=== PATIENT | male | born 1990 | race Caucasian/White ===

== ENCOUNTER 2016-05-15 12:00 | Outpatient (CLI) | payer SELFPAY ==
[~2016-05-15] VITALS: Ht 175.3 cm; Wt 99.3 kg
[~2016-05-15 12:00] MED LIST: CIPR-225 PO; METR500T PO
== END 2016-05-15 13:52 ==
LOC: PREOP 12:00
PROVIDERS: ATTEND Surgery
DX: Z01.818 Encounter for other preprocedural examination (principal)

== ENCOUNTER 2016-05-21 08:43 | Day surgery (SDC) | payer OTHER ==
[~2016-05-21] VITALS: Ht 175.3 cm; Wt 99.3 kg
[2016-05-21 08:55] VITALS: BP 135/86
[2016-05-21] MEDS ORDERED: NS IV 1000 ML 1,000 ML ONE (08:58)
[2016-05-21] MEDS ORDERED: LIDOCAINE JELLY 2% (XYLOCAINE) 5 ML TUBE MM PRN (09:00)
[2016-05-21] MEDS ORDERED: NS IV 1000 ML 1,000 ML IV PRN (09:00)
[2016-05-21] MEDS ORDERED: MIDAZOLAM 2 MG/2 ML (VERSED) VIAL ONE (10:05)
[2016-05-21] MEDS ORDERED: proPOfol 200 MG/20 ML (DIPRIVAN) VIAL IV ONE (10:05)
--- NOTE | 2016-05-21 10:42 | Discharge Inst-Simple/Standard ---
Discharge Inst-Standard Patient Instructions/Follow Up Plan of Care/Instructions/FU: Follow up with Dr. Cordova as needed. Repeat colonoscopy in 3 years or sooner if changes to current condition. Activity as Tolerated: Yes Discharge Diet: No Restrictions BETSY BURNETTE APRN May 21, 2016 10:42
--- NOTE | 2016-05-21 10:49 | Progress Note-Post Operative ---
Post-Operative Progess Note Surgeon (s)/Oil Well Logger (s) Surgeon NGHIA SHERIFF DO Oil Well Logger: 0 Pre-Operative Diagnosis history of polyp Post-Operative Diagnosis normal colon Post-Op Procedure Note Date of Procedure: May 21, 2016 Name of Procedure Performed: colonoscopy Description of the Procedure: see note Findings of the Procedure see note Anesthesia Type per mda Estimated blood loss (mL): none Specimen(s) collected/removed none NGHIA SHERIFF DO May 21, 2016 10:49 am
[2016-05-21 11:00] VITALS: BP 149/86
[2016-05-21 11:20] VITALS: BP 134/80
[2016-05-21 11:30] VITALS: BP 134/80
--- NOTE | 2016-05-22 10:26 | PROCEDURE REPORT ---
PROCEDURE PHYSICIAN: NGHIA CORDOVA DATE OF PROCEDURE: 05/21/2016 PREOPERATIVE DIAGNOSES: History of serrated adenomatous polyp with high-grade dysplasia. POSTOPERATIVE DIAGNOSIS: Normal colon. PROCEDURE: Colonoscopy. SURGEON: Dr. Cordova. ANESTHESIA: Per MDA. ESTIMATED BLOOD LOSS: None. COMPLICATIONS: None. INDICATIONS: The patient is a 25-year-old with serrated adenomatous polyp with high-grade dysplasia. He understands the risks and benefits of the procedure and wished to proceed with the procedure. Consent was signed on the chart. PROCEDURE: The patient was taken operative taken to the endoscopy suite, placed in left lateral recumbent position. Timeout was performed. Digital rectal exam was performed. There were no palpable polyps, masses or ulcerations. The scope was inserted in the rectum and advanced all of the way to the cecum with minimal difficulty. Prep was adequate. The scope was then slowly retracted back. There were no polyps, masses, or ulcerations in the cecum, ascending, transverse, descending and sigmoid colon. Once in the rectum, the scope was also retroflexed noting no other pathology. The scope was returned its normal position and slowly withdrawn until completely removed. The patient tolerated the procedure well without any complications and taken to recovery in stable condition. RECOMMENDATIONS: Would recommend repeat colonoscopy in 3 years for reevaluation. After that, he will need a colonoscopy over 5 years due to the history of polyps. The patient understands. The patient will follow-up for next colonoscopy in 3 years. If any problems prior to that, he should be reevaluated at that time. Job ID: [id number] Dictated Date: 05/21/2016 10:52:19 Long Chain Beamer Date: 05/22/2016 10:19:50 / tbk
== END 2016-05-21 11:30 | disposition home or self-care (01) ==
LOC: SDC 08:43
PROVIDERS: ATTEND Surgery
DX: Z09 Encounter for follow-up examination after completed treatment for conditions other than malignant neoplasm (principal); Z86.010 Personal history of colon polyps

== ENCOUNTER 2019-12-13 12:10 | Observation (INO) | payer SELFPAY ==
[~2019-12-13] VITALS: Ht 177.8 cm; Wt 99.9 kg
[2019-12-13] MEDS ORDERED: KETOROLAC 30 MG/ML VIAL IVP ONE (12:30)
[2019-12-13] MEDS ORDERED: NS IV 1000 ML 1,000 ML IV SCH (12:30)
[2019-12-13 12:31] LABS: BASOPHILS # (AUTO) 0.1 10^3/uL (0.0-0.1); BASOPHILS % (AUTO) 1 % (0-10); EOSINOPHILS # (AUTO) 0.1 10^3/uL (0.0-0.3); EOSINOPHILS % (AUTO) 1 % (0-10); HEMATOCRIT 47 % (40-54); LYMPHOCYTES # (AUTO) 1.8 10^3/uL (1.0-4.0); LYMPHOCYTES % (AUTO) 10 % (12-44); MEAN CORPUSCULAR HEMOGLOBIN 30 pg (25-34); MEAN CORPUSCULAR HGB CONC 34 g/dL (32-36); MEAN CORPUSCULAR VOLUME 89 fL (80-99); MEAN PLATELET VOLUME 11.8 fL (9.0-12.2); MONOCYTES # (AUTO) 0.8 10^3/uL (0.0-1.0); MONOCYTES % (AUTO) 5 % (0-12); NEUTROPHILS # (AUTO) 14.9 10^3/uL (1.8-7.8); NEUTROPHILS % (AUTO) 84 % (42-75); PLATELET COUNT 244 10^3/uL (130-400); WHITE BLOOD COUNT 17.8 10^3/uL (4.3-11.0)
--- NOTE | 2019-12-13 12:31 | ED GI ---
General Chief Complaint: Abdominal/GI Problems Stated Complaint: LLQ PAIN Nursing Triage Note: PT AMBULATE TO ROOM 06 WITH C/O LLQ PAIN STARTING FRIDAY. PT STATES WAS SEEN AT [facility] AND TOLD THAT HE HAS A KIDNEY STONE. PT STATES HE SEEN BLOOD IN HIS URINE AND HE RETURNED TO [facility] AND WAS TOLD HE HAD A KIDNEY INFECTION AND WAS INSTRUCTED TO COME TO ED. Sepsis Screen: No Definite Risk Source of Information: Patient Exam Limitations: No Limitations History of Present Illness Date Seen by Provider: Dec 13, 2019 Time Seen by Provider: 12:29 Initial Comments To ER with sudden onset left flank pain that began Friday. The pain was initially intermittent but has become more constant since then and he has had an episode of vomiting as well as hematuria. He went to [facility] and was referred here due to pain and hematuria. No history of kidney stones. He does smoke cigarettes but he takes no medications and does not drink alcohol. Has not taken anything at home for pain. Timing/Duration: 2-3 Days Severity/Quality: Moderate Location: Flank Radiation: No Radiation Activities at Onset: None Associated Symptoms: Denies Symptoms Allergies and Home Medications Allergies Coded Allergies: No Known Drug Allergies (Unverified , 10/07/15) Home Medications No Active Prescriptions or Reported Meds Patient Home Medication List Home Medication List Reviewed: Yes Review of Systems Review of Systems Constitutional: see HPI, chills EENTM: No Symptoms Reported Respiratory: No Symptoms Reported Cardiovascular: No Symptoms Reported Gastrointestinal: See HPI, Abdominal Pain Genitourinary: See HPI, Hematuria Musculoskeletal: no symptoms reported Skin: no symptoms reported Psychiatric/Neurological: No Symptoms Reported Endocrine: No Symptoms Reported Hematologic/Lymphatic: No Symptoms Reported Past Jysjclc-Wrbixk-Umdfww Hx Patient Social History Alcohol Use: Rarely Uses Recreational Drug Use: No Smoking Status: Current Everyday Smoker Type Used: Cigarettes Recent Foreign Travel: No Contact w/Someone Who Travel: No Recent Infectious Disease Expo: No Recent Hopitalizations: No Physical Abuse: No Sexual Abuse: No Mistreated: No Fear: No Seasonal Allergies Seasonal Allergies: Yes Past Medical History Surgeries: Yes (left patella/tendon surgery) Orthopedic Respiratory: No Cardiac: No Neurological: No Reproductive Disorders: No Gastrointestinal: No Musculoskeletal: No Endocrine: No Cancer: No Psychosocial: No Integumentary: No Blood Disorders: No Physical Exam Vital Signs Vital Signs - First Documented 12/13/19 12:15 Temp 35.8 Pulse 97 Resp 19 B/P (MAP) 145/102 (116) O2 Delivery Room Air Capillary Refill : Less Than 3 Seconds Height/Weight/BMI Height: 5'9.00" Weight: 219lbs. 0.0oz. 99.432420ld; 31.00 BMI Method:Stated General Appearance: WD/WN, no apparent distress Respiratory: normal breath sounds, no respiratory distress, no accessory muscle use Gastrointestinal: normal bowel sounds, non tender, soft Rectal: other (there is left flank tenderness to palpation) Extremities: normal range of motion, non-tender Neurologic/Psychiatric: alert, normal mood/affect, oriented x 3 Skin: normal color, warm/dry Focused Exam Lactate Level 12/13/19 13:00: Lactic Acid Level 1.08 Lactic Acid Level Laboratory Tests Test 12/13/19 13:00 Lactic Acid Level 1.08 MMOL/L (0.50-2.00) Progress/Results/Core Measures Results/Orders Lab Results Laboratory Tests Test 12/13/19 12:14 12/13/19 13:00 12/13/19 13:10 Range/Units White Blood Count 17.8 H 4.3-11.0 10^3/uL Red Blood Count 5.28 4.30-5.52 10^6/uL Hemoglobin 16.0 13.3-17.7 g/dL Hematocrit 47 40-54 % Mean Corpuscular Volume 89 80-99 fL Mean Corpuscular Hemoglobin 30 25-34 pg Mean Corpuscular Hemoglobin Concent 34 32-36 g/dL Red Cell Distribution Width 13.5 10.0-14.5 % Platelet Count 244 130-400 10^3/uL Mean Platelet Volume 11.8 9.0-12.2 fL Immature Granulocyte % (Auto) 0 % Neutrophils (%) (Auto) 84 H 42-75 % Lymphocytes (%) (Auto) 10 L 12-44 % Monocytes (%) (Auto) 5 0-12 % Eosinophils (%) (Auto) 1 0-10 % Basophils (%) (Auto) 1 0-10 % Neutrophils # (Auto) 14.9 H 1.8-7.8 10^3/uL Lymphocytes # (Auto) 1.8 1.0-4.0 10^3/uL Monocytes # (Auto) 0.8 0.0-1.0 10^3/uL Eosinophils # (Auto) 0.1 0.0-0.3 10^3/uL Basophils # (Auto) 0.1 0.0-0.1 10^3/uL Immature Granulocyte # (Auto) 0.1 0.0-0.1 10^3/uL Neutrophils % (Manual) 76 % Lymphocytes % (Manual) 16 % Monocytes % (Manual) 5 % Eosinophils % (Manual) 0 % Basophils % (Manual) 2 % Band Neutrophils 1 % Blood Morphology Comment NORMAL Sodium Level 138 135-145 MMOL/L Potassium Level 3.6 3.6-5.0 MMOL/L Chloride Level 104 98-107 MMOL/L Carbon Dioxide Level 23 21-32 MMOL/L Anion Gap 11 5-14 MMOL/L Blood Urea Nitrogen 7 7-18 MG/DL Creatinine 0.94 0.60-1.30 MG/DL Estimat Glomerular Filtration Rate > 60 BUN/Creatinine Ratio 7 Glucose Level 88 70-105 MG/DL Calcium Level 9.4 8.5-10.1 MG/DL Corrected Calcium 9.2 8.5-10.1 MG/DL Total Bilirubin 0.7 0.1-1.0 MG/DL Aspartate Amino Transf (AST/SGOT) 41 H 5-34 U/L Alanine Aminotransferase (ALT/SGPT) 64 H 0-55 U/L Alkaline Phosphatase 87 40-136 U/L Total Protein 7.0 6.4-8.2 GM/DL Albumin 4.3 3.2-4.5 GM/DL Lactic Acid Level 1.08 0.50-2.00 MMOL/L Urine Color YELLOW Urine Clarity CLEAR Urine pH 6.5 5-9 Urine Specific [place] <=1.005 1.016-1.022 Urine Protein 2+ H NEGATIVE Urine Glucose (UA) NEGATIVE NEGATIVE Urine Ketones 3+ H NEGATIVE Urine Nitrite NEGATIVE NEGATIVE Urine Bilirubin 1+ H NEGATIVE Urine Urobilinogen 1.0 < = 1.0 MG/DL Urine Leukocyte Esterase TRACE H NEGATIVE Urine RBC (Auto) 3+ H NEGATIVE Urine RBC >100 H /HPF Urine WBC 10-25 H /HPF Urine Squamous Epithelial Cells RARE /HPF Urine Crystals NONE /LPF Urine Bacteria NEGATIVE /HPF Urine Casts NONE /LPF Urine Mucus NEGATIVE /LPF Urine Culture Indicated YES My Orders Orders - MYRON REED LEGAL SUPPORT SPECIALIST Ct Abd/Pelvis Wo(Kidney Stone) (12/13/19 12:25) Cbc With Automated Diff (12/13/19 12:25) Comprehensive Metabolic Panel (12/13/19 12:25) Ua Culture If Indicated (12/13/19 12:25) Ed Iv/Invasive Line Start (12/13/19 12:25) Ns Iv 1000 Ml (Sodium Chloride 0.9%) (12/13/19 12:30) Ketorolac Injection (Toradol Injection) (12/13/19 12:30) Abdomen/Kub 1view (12/13/19 12:25) Manual Differential (12/13/19 12:14) Blood Culture (12/13/19 12:53) Lactic Acid Analyzer (12/13/19 12:53) Ceftriaxone For Iv Use (Rocephin For I (12/13/19 13:00) Urine Culture (12/13/19 13:10) Medications Given in ED Current Medications Medications Dose Ordered Sig/Analy Route Start Time Stop Time Status Last Admin Dose Admin Ceftriaxone Sodium 1000 mg/ Sterile Water 10 ml @ 200 mls/hr ONCE ONCE IV 12/13/19 13:00 12/13/19 13:02 DC 12/13/19 13:07 200 MLS/HR Ketorolac Tromethamine 15 mg ONCE ONCE IVP 12/13/19 12:30 12/13/19 12:31 DC 12/13/19 12:36 15 MG Vital Signs/I&O 12/13/19 12:15 Temp 35.8 Pulse 97 Resp 19 B/P (MAP) 145/102 (116) O2 Delivery Room Air Blood Pressure Mean: 116 Diagnostic Imaging Diagonstic Imaging: CT Comments NAME: BRANDON MASCORRO Beatriz Gonzalez MED REC#: [id number] PT STATUS: REG ER : 1990 PHYSICIAN: MYRON REED APRN ADMIT DATE: 12/13/19/ER Draft Date of Exam:12/13/19 CT ABD/PELVIS WO(KIDNEY STONE) PROCEDURE: CT urinary tract, rule out kidney stone. TECHNIQUE: Multiple contiguous axial images were obtained through the abdomen and pelvis without the use of intravenous contrast. Auto Exposure Controls were utilized during the CT exam to meet ALARA standards for radiation dose reduction. INDICATION: Left flank and back pain. Hematuria. COMPARISON: 10/07/2015. FINDINGS: The heart is unremarkable. The included lung bases are clear. A calculus is seen in the proximal left ureter at the L4 level measuring 0.3 cm with mild left-sided hydroureteronephrosis. No calculi are seen on the right. The urinary bladder is nondistended. The liver, spleen, pancreas, and adrenal glands have a normal noncontrast CT appearance. There is no pathologically enlarged mesenteric or retroperitoneal adenopathy. The bowel loops are nondilated. The appendix is visualized in the right lower quadrant and has a normal appearance. There is no free fluid or free air. The osseous structures are age-appropriate. There is no free air, loculated collection, or adenopathy in the pelvis. IMPRESSION: Urolithiasis in the proximal left ureter with associated mild left-sided hydroureteronephrosis. Dictated on workstation # [id number] Dict: 12/13/19 1307 Trans: 12/13/19 1312 ANURAG [id number] Interpreted by: GARCIA MELCHOR DO Electronically signed by: NAME: BRANDON MASCORRO Beatriz Gonzalez MED REC#: [id number] PT STATUS: REG ER : 1990 PHYSICIAN: MYRON REED LEGAL SUPPORT SPECIALIST ADMIT DATE: 12/13/19/ER Draft Date of Exam:12/13/19 ABDOMEN/KUB 1VIEW INDICATION: Left-sided renal stone. TIME OF EXAM: 12:50 PM. FINDINGS: A small 3 mm calculus in the left ureter projects just below the left L3 transverse process. No other radiopaque urinary tract calculi are seen. A right pelvic calcification is most consistent with a phlebolith. The bowel gas pattern is unremarkable. IMPRESSION: Left ureteral calculus, as described. Dictated on workstation # [id number] Dict: 12/13/19 1314 Trans: 12/13/19 1318 ANURAG [id number] Interpreted by: CHRISTOPHER NEVILLE MD Electronically signed by: Departure Communication (Admissions) 2353-he is afebrile but has leukocytosis and tachycardia with a rate of 107 on arrival. He's also had 3 days of symptoms and despite this the stone is still quite proximal. For this reason will admit him for some IV fluids and Rocephin, see if Dr. Xiong needs to do lithotripsy or stent placement. 1357-Pain free after 15mg toradol at this time. Impression Primary Impression: Sepsis Qualified Codes: A41.9 - Sepsis, unspecified organism Additional Impression: Left ureteral calculus Disposition: ADMITTED INPATIENT Condition: Stable Admissions Decision to Admit Reason: Admit from ER (General) Decision to Admit/Date: Dec 13, 2019 Time/Decision to Admit Time: 12:57 Departure-Patient Inst. Referrals: [facility] [place] (PCP/Family) Primary Care Physician Scripts No Active Prescriptions or Reported Meds MYRON REED APRN Dec 13, 2019 12:31
[2019-12-13 12:35] LABS: ALBUMIN 4.3 GM/DL (3.2-4.5); CHLORIDE 104 MMOL/L (98-107); POTASSIUM 3.6 MMOL/L (3.6-5.0); SODIUM 138 MMOL/L (135-145)
[2019-12-13 12:36] LABS: CALCIUM 9.4 MG/DL (8.5-10.1)
[2019-12-13 12:37] LABS: GLUCOSE 88 MG/DL (70-105)
[2019-12-13 12:38] LABS: CARBON DIOXIDE 23 MMOL/L (21-32)
[2019-12-13 12:39] LABS: BILIRUBIN,TOTAL 0.7 MG/DL (0.1-1.0)
[2019-12-13 12:41] LABS: ALKALINE PHOSPHATASE 87 U/L (40-136); CREATININE SERUM 0.94 MG/DL (0.60-1.30); GFR ESTIMATED > 60
[2019-12-13 12:42] LABS: BUN/CREATININE RATIO 7
[2019-12-13 12:44] LABS: ALANINE AMINOTRANSFERASE 64 U/L (0-55)
[2019-12-13] MEDS ORDERED: cefTRIAXone FOR IV USE 1,000 MG in WATER (STERILE) FOR INJECTION 10 ML IV ONE (13:00)
[2019-12-13 13:06] LABS: BAND NEUTROPHILS 1 %; BASOPHILS % (MANUAL) 2 %; EOSINOPHILS % (MANUAL) 0 %; LYMPHOCYTES % (MANUAL) 16 %; MONOCYTES % (MANUAL) 5 %; NEUTROPHILS % (MANUAL) 76 %; RBC MORPH NORMAL
--- NOTE | 2019-12-13 13:14 | Diagnostic Imaging Report ---
PROCEDURE: CT urinary tract, rule out kidney stone. TECHNIQUE: Multiple contiguous axial images were obtained through the abdomen and pelvis without the use of intravenous contrast. Auto Exposure Controls were utilized during the CT exam to meet ALARA standards for radiation dose reduction. INDICATION: Left flank and back pain. Hematuria. COMPARISON: 10/07/2015. FINDINGS: The heart is unremarkable. The included lung bases are clear. A calculus is seen in the proximal left ureter at the L4 level measuring 0.3 cm with mild left-sided hydroureteronephrosis. No calculi are seen on the right. The urinary bladder is nondistended. The liver, spleen, pancreas, and adrenal glands have a normal noncontrast CT appearance. There is no pathologically enlarged mesenteric or retroperitoneal adenopathy. The bowel loops are nondilated. The appendix is visualized in the right lower quadrant and has a normal appearance. There is no free fluid or free air. The osseous structures are age-appropriate. There is no free air, loculated collection, or adenopathy in the pelvis. IMPRESSION: Urolithiasis in the proximal left ureter with associated mild left-sided hydroureteronephrosis. Dictated by: Dictated on workstation # [id number]
--- NOTE | 2019-12-13 13:19 | Diagnostic Imaging Report ---
INDICATION: Left-sided renal stone. TIME OF EXAM: 12:50 PM. FINDINGS: A small 3 mm calculus in the left ureter projects just below the left L3 transverse process. No other radiopaque urinary tract calculi are seen. A right pelvic calcification is most consistent with a phlebolith. The bowel gas pattern is unremarkable. IMPRESSION: Left ureteral calculus, as described. Dictated by: Dictated on workstation # [id number]
[2019-12-13 13:22] LABS: CLARITY,URINE CLEAR; COLOR,URINE YELLOW; GLUCOSE, URINE (UA) NEGATIVE (NEGATIVE); KETONES,URINE 3+ (NEGATIVE); LEUKOCYTE ESTERASE ,URINE TRACE (NEGATIVE); NITRITE,URINE NEGATIVE (NEGATIVE); PH,URINE 6.5 (5-9); PROTEIN,URINE 2+ (NEGATIVE)
[2019-12-13 13:34] LABS: BACTERIA,URINE NEGATIVE /HPF; RBC,URINE >100 /HPF; SQUAMOUS EPITHELIAL CELL,UR RARE /HPF
[2019-12-13 13:35] LABS: BILIRUBIN,URINE 1+ (NEGATIVE)
--- NOTE | 2019-12-13 14:15 | NUR ---
BRANDON MASCORRO admitted to room 417-1, with an admitting diagnosis of UTI/SEPSIS, on 12/13/19 from ED, accompanied by RN. BRANDON MASCORRO introduced to surroundings, call light, bed controls, phone, TV, temperature control, lights, meal times, smoking policy, visitor policy, side rail policy, bathrooms and showers. Patient Rights given to patient in the handbook. BRANDON MASCORRO verbalizes understanding that [facility] is not responsible for the loss or damage to any personal effects or valuables that are kept in the patients posession during their hospitalization. BRANDON MASCORRO verbalizes understanding of Interdisciplinary Patient Education. Patient and/or family were informed about the Rapid Response Team and its purpose.
[2019-12-13] MEDS ORDERED: KETOROLAC 15 MG/ML VIAL IV PRN (15:15)
[2019-12-13] MEDS ORDERED: CATHETER FLUSH 10 ML SYR IV PRN (15:15)
[2019-12-13] MEDS ORDERED: fentaNYL INJECTION 100 MCG/2 ML AMP IV PRN (15:15)
[2019-12-13] MEDS ORDERED: ONDANSETRON 4 MG/2 ML (SDV) Z0FRAN IV PRN (15:15)
[2019-12-13] MEDS: LACTATED RINGERS 1,000 ML IV SCH ×2 (15:16→22:56)
[2019-12-13] MEDS ORDERED: ENOXAPARIN 40 MG/0.4 ML (LOVENOX) SYR SQ SCH (15:30)
[2019-12-13 15:41] VITALS: BP 133/65
[2019-12-13 15:43] VITALS: BP 135/78
[2019-12-13] MEDS ORDERED: ACET325T38 PO (16:00)
--- NOTE | 2019-12-13 16:00 | NUR ---
I SPOKE WITH THE PATIENT TO COMPLETE THIS MED REC. OTC: TYLENOL
[2019-12-13 20:00] VITALS: BP 131/74
[2019-12-13 23:56] VITALS: BP 116/57
[2019-12-14 04:10] VITALS: BP 117/61
[2019-12-14 05:09] LABS: BASOPHILS # (AUTO) 0.1 10^3/uL (0.0-0.1); BASOPHILS % (AUTO) 1 % (0-10); EOSINOPHILS # (AUTO) 0.4 10^3/uL (0.0-0.3); EOSINOPHILS % (AUTO) 6 % (0-10); HEMATOCRIT 40 % (40-54); HEMOGLOBIN 13.1 g/dL (13.3-17.7); LYMPHOCYTES # (AUTO) 3.1 10^3/uL (1.0-4.0); LYMPHOCYTES % (AUTO) 49 % (12-44); MEAN CORPUSCULAR HEMOGLOBIN 30 pg (25-34); MEAN CORPUSCULAR HGB CONC 33 g/dL (32-36); MEAN CORPUSCULAR VOLUME 91 fL (80-99); MEAN PLATELET VOLUME 11.6 fL (9.0-12.2); MONOCYTES # (AUTO) 0.5 10^3/uL (0.0-1.0); MONOCYTES % (AUTO) 8 % (0-12); NEUTROPHILS # (AUTO) 2.3 10^3/uL (1.8-7.8); NEUTROPHILS % (AUTO) 36 % (42-75); PLATELET COUNT 182 10^3/uL (130-400); WHITE BLOOD COUNT 6.4 10^3/uL (4.3-11.0)
[2019-12-14 05:33] LABS: ALANINE AMINOTRANSFERASE 42 U/L (0-55); ALBUMIN 3.3 GM/DL (3.2-4.5); ALKALINE PHOSPHATASE 76 U/L (40-136); BILIRUBIN,TOTAL 0.4 MG/DL (0.1-1.0); BUN/CREATININE RATIO 9; CALCIUM 8.5 MG/DL (8.5-10.1); CARBON DIOXIDE 24 MMOL/L (21-32); CHLORIDE 110 MMOL/L (98-107); CREATININE SERUM 0.87 MG/DL (0.60-1.30); GFR ESTIMATED > 60; GLUCOSE 100 MG/DL (70-105); POTASSIUM 3.6 MMOL/L (3.6-5.0); SODIUM 142 MMOL/L (135-145); TOTAL PROTEIN 5.4 GM/DL (6.4-8.2)
[2019-12-14 05:52] LABS: LYMPHOCYTES % (MANUAL) 47 %; MONOCYTES % (MANUAL) 5 %; NEUTROPHILS % (MANUAL) 38 %
[2019-12-14 05:53] LABS: ATYPICAL LYMPHOCYTES 3 %; EOSINOPHILS % (MANUAL) 6 %; HYPOCHROMASIA MARKED; METAMYELOCYTES % 1 %; MICROCYTOSIS SLIGHT
[2019-12-14] MEDS: LACTATED RINGERS 1,000 ML IV SCH (06:30)
[2019-12-14 08:00] VITALS: BP 136/80
[2019-12-14] MEDS ORDERED: cefTRIAXone 1,000 MG/SWFI 10 ML IV PUSH IV SCH ×2 (09:00)
--- NOTE | 2019-12-14 11:05 | Diagnostic Imaging Report ---
INDICATION: Left ureteral stone, follow-up. TECHNIQUE: 2 supine view of the abdomen 10:19 AM CORRELATION STUDY: 12/13/2019 FINDINGS: 4 mm calcification projects just inferior to the left L3 transverse process. There has been very little if any significant migration from prior study. No additional calcification or fair either renal silhouette. Bowel gas pattern unremarkable. Spina bifida occulta defect at the S1 level. IMPRESSION: 1. No significant interval migration of the 4 mm left proximal ureteral stone. Dictated by: Dictated on workstation # [id number]
[2019-12-14] MEDS ORDERED: ACHD5005 PO (11:42)
[2019-12-14] MEDS ORDERED: TMSL.4C PO (11:42)
[2019-12-14] MEDS ORDERED: SULF1TAB35 PO (11:42)
--- NOTE | 2019-12-14 11:51 | Discharge Summary ---
Discharge Summary Hospital Course Was the Problem List Reviewed?: Yes Problems/Dx: (1) Urolithiasis Status: Acute Qualifiers: Qualified Codes: N20.1 - Calculus of ureter (2) Hydronephrosis due to obstruction of ureter Status: Acute Hospital Course Date of Admission: Dec 13, 2019 at 13:00 Admission Diagnosis : Left urolithiasis with hydronephrosis Family Physician/Provider: [place] Date of Discharge: 12/14/19 Discharge Diagnosis: Left urolithiasis with hydronephrosis Hospital Course: Tristan Watts is a 29 year old male who was admitted with left-sided urolithiasis with hydronephrosis. He was started on IV fluids and antibiotics due to pyuria. His pain was well-controlled with medications. Urology was consulted and assisted with his care. Dr. Xiong recommended continuing Bactrim, Flomax, and oral pain medications. He will follow-up with him as an outpatient. An appointment was made for follow-up prior to discharge. He should also follow-up with his primary care physician in about a week. Labs and Pending Lab Test: Laboratory Tests 12/13/19 12:14: White Blood Count 17.8H, Red Blood Count 5.28, Hemoglobin 16.0, Hematocrit 47, Mean Corpuscular Volume 89, Mean Corpuscular Hemoglobin 30, Mean Corpuscular Hemoglobin Concent 34, Red Cell Distribution Width 13.5, Platelet Count 244, Mean Platelet Volume 11.8, Immature Granulocyte % (Auto) 0, Neutrophils (%) (Auto) 84H, Lymphocytes (%) (Auto) 10L, Monocytes (%) (Auto) 5, Eosinophils (%) (Auto) 1, Basophils (%) (Auto) 1, Neutrophils # (Auto) 14.9H, Lymphocytes # (Auto) 1.8, Monocytes # (Auto) 0.8, Eosinophils # (Auto) 0.1, Basophils # (Auto) 0.1, Immature Granulocyte # (Auto) 0.1, Neutrophils % (Manual) 76, Lymphocytes % (Manual) 16, Monocytes % (Manual) 5, Eosinophils % (Manual) 0, Basophils % (Manual) 2, Band Neutrophils 1, Blood Morphology Comment NORMAL, Sodium Level 138, Potassium Level 3.6, Chloride Level 104, Carbon Dioxide Level 23, Anion Gap 11, Blood Urea Nitrogen 7, Creatinine 0.94, Estimat Glomerular Filtration Rate > 60, BUN/Creatinine Ratio 7, Glucose Level 88, Calcium Level 9.4, Corrected Calcium 9.2, Total Bilirubin 0.7, Aspartate Amino Transf (AST/SGOT) 41H, Alanine Aminotransferase (ALT/SGPT) 64H, Alkaline Phosphatase 87, Total Protein 7.0, Albumin 4.3 12/13/19 13:00: Lactic Acid Level 1.08 12/13/19 13:10: Urine Color YELLOW, Urine Clarity CLEAR, Urine pH 6.5, Urine Specific [place] <=1.005, Urine Protein 2+H, Urine Glucose (UA) NEGATIVE, Urine Ketones 3+H, Urine Nitrite NEGATIVE, Urine Bilirubin 1+H, Urine Urobilinogen 1.0, Urine Leukocyte Esterase TRACEH, Urine RBC (Auto) 3+H, Urine RBC >100H, Urine WBC 10- 25H, Urine Squamous Epithelial Cells RARE, Urine Crystals NONE, Urine Bacteria NEGATIVE, Urine Casts NONE, Urine Mucus NEGATIVE, Urine Culture Indicated YES 12/14/19 04:55: White Blood Count 6.4, Red Blood Count 4.38, Hemoglobin 13.1L, Hematocrit 40, Mean Corpuscular Volume 91, Mean Corpuscular Hemoglobin 30, Mean Corpuscular Hemoglobin Concent 33, Red Cell Distribution Width 13.7, Platelet Count 182, Mean Platelet Volume 11.6, Immature Granulocyte % (Auto) 0, Neutrophils (%) (Auto) 36L, Lymphocytes (%) (Auto) 49H, Monocytes (%) (Auto) 8, Eosinophils (%) (Auto) 6, Basophils (%) (Auto) 1, Neutrophils # (Auto) 2.3, Lymphocytes # (Auto) 3.1, Monocytes # (Auto) 0.5, Eosinophils # (Auto) 0.4H, Basophils # (Auto) 0.1, Immature Granulocyte # (Auto) 0.0, Neutrophils % (Manual) 38, Lymphocytes % (Manual) 47, Monocytes % (Manual) 5, Eosinophils % (Manual) 6, Sodium Level 142, Potassium Level 3.6, Chloride Level 110H, Carbon Dioxide Level 24, Anion Gap 8, Blood Urea Nitrogen 8, Creatinine 0.87, Estimat Glomerular Filtration Rate > 60, BUN/Creatinine Ratio 9, Glucose Level 100, Calcium Level 8.5, Corrected Calcium 9.1, Total Bilirubin 0.4, Aspartate Amino Transf (AST/SGOT) 23, Alanine Aminotransferase (ALT/SGPT) 42, Alkaline Phosphatase 76, Total Protein 5.4L, Albumin 3.3, Metamyelocytes % 1, Atypical Lymphocytes 3, Hypochromasia MARKED, Microcytosis SLIGHT Microbiology 12/13/19 Urine Culture - Preliminary, Resulted Home Meds Active Hydrocodone-Acetamin 5-325 mg (Hydrocodone/Acetaminophen) 1 Each Tablet 1 Each PO Q6H PRN 7 Days Flomax (Tamsulosin HCl) 0.4 Mg Cap 0.4 Mg PO DAILY 7 Days Bactrim Ds Tablet (Sulfamethoxazole/Trimethoprim) 1 Each Tablet 1 Each PO BID 7 Days Reported Tylenol (Acetaminophen) 325 Mg Tablet 325-650 Mg PO Q6H PRN TAKE 1-2 (325MG) TABLETS Assessment/Pt Instructions Take medications as prescribed. Complete your course of antibiotics even if you're feeling better. Follow-up with Dr. Xiong as scheduled. Follow up with [facility] in about a week. Return with intractable pain or if you feel like you're getting worse. Discharge Planning: <30 minutes discharge planning Discharge Instructions Discharge Diet: No Restrictions Activity as Tolerated: Yes Pneumonia Vaccine Order Indica: Yes Consultations Urology Discharge Physical Examination Vital Signs Vital Signs Date Time Temp Pulse Resp B/P (MAP) Pulse Ox O2 Delivery O2 Flow Rate FiO2 12/14/19 08:00 36.7 73 20 136/80 (98) 99 Room Air General Appearance: No Apparent Distress, WD/WN Respiratory: Lungs Clear, Normal Breath Sounds, No Respiratory Distress Cardiovascular: Regular Rate, Rhythm, No Edema, No Murmur Gastrointestinal: Normal Bowel Sounds, Non Tender, Soft Extremity: Normal Inspection, Non Tender, No Pedal Edema Skin: Normal Color, Warm/Dry Neurologic/Psychiatric: Alert, Oriented x3, No Motor/Sensory Deficits, Normal Mood/Affect Allergies: Coded Allergies: No Known Drug Allergies (Unverified , 10/07/15) Copy Copies To 1: [facility] [place] Discharge Summary Date of Admission Dec 13, 2019 at 13:00 Date of Discharge Discharge Date: Dec 14, 2019 Discharge Time: 11:50 Admission Diagnosis urolithiasis with hydronephrosis Consults/Procedures Consulations urology Discharge Diagnosis (1) Urolithiasis Status: Acute Qualifiers: Qualified Codes: N20.1 - Calculus of ureter (2) Hydronephrosis due to obstruction of ureter Status: Acute Clinical Quality Measures DVT/VTE Risk/Contraindication: Risk Factor Score Per Nursin RFS Level Per Nursing on Admit: 3=High TROY MCCALL MD Dec 14, 2019 11:50
[2019-12-14 12:00] VITALS: BP 133/72
[2019-12-14 12:50] VITALS: BP 133/72
--- NOTE | 2019-12-14 12:54 | CONSULTATION REPORT ---
DATE OF SERVICE: 12/14/2019 ATTENDING PHYSICIAN: Dr. Fidelina Stephens. SUMMARY: After reviewing the patient's records, interviewing him and examining him, this is a 29-year-old white man who was admitted yesterday because of left flank pain, possible urosepsis, was found to have a 3 mm stone on the left side at L4. He has been having no pain and feeling good with no problem. No fever. KUB, no much change. IMPRESSION: Left proximal ureteral stone. RECOMMENDATIONS: Okay to dismiss the patient on some Bactrim-DS, pain medicine, Flomax and push fluids, especially caffeinated fluids, strain all urine, save any stone passed, get an appointment on Friday to follow up at the office. If he passes the stone, he brings it with him, and we will manage accordingly. The plan was fully explained to the patient. Job ID: [id number] DocumentID: [id number] Dictated Date: 12/14/2019 10:42:22 Door Assembler Date: 12/14/2019 12:53:41 Dictated By: PRAVEEN RICHARD MD
== END 2019-12-14 12:50 | disposition home or self-care (01) ==
LOC: EDUNIT# 12:10 → ER 12:13 → 4TH 13:00
PROVIDERS: ADMIT Family Medicine; ATTEND Family Medicine
DX: N13.2 Hydronephrosis with renal and ureteral calculous obstruction (principal); F17.210 Nicotine dependence, cigarettes, uncomplicated
CPT/HCPCS: 36415; 74018; 74176; 80053; 81000; 83605; 85007; 85027; 87040; 87088; G0378

== ENCOUNTER → 2019-12-20 | Outpatient (CLI) | payer OTHER ==
[~2019-12-20] MED LIST changes: +ACET325T38 PO; +ACHD5005 PO; +SULF1TAB35 PO; +TMSL.4C PO
--- NOTE | 2019-12-20 16:25 | Diagnostic Imaging Report ---
INDICATION: Renal stone followup. TIME OF EXAM: 3:36 PM. COMPARISON: Correlation is made with the prior radiograph from 12/14/2019. FINDINGS: The previously noted stone projected just below the left L3 transverse process appears to have migrated. This is now located in the region of the distal left ureter near the UVJ in the left para midline pelvis. IMPRESSION: Migration of the previously noted left ureteral calculus into the pelvis, likely near the UVJ. Dictated by: Dictated on workstation # [id number]
== END ==
LOC: RAD 15:12
PROVIDERS: ATTEND Urology
DX: N20.0 Calculus of kidney (principal)
CPT/HCPCS: 74018